=== PATIENT | female | born 1970 | race Caucasian/White ===

== ENCOUNTER 2018-07-07 16:04 | Emergency (ER) | payer OTHER ==
[~2018-07-07] VITALS: Ht 167.6 cm; Wt 67.6 kg
[~2018-07-07 16:04] MED LIST: ASPI325EC PO
[2018-07-07] MEDS ORDERED: Cyclobenzaprine5 MG PO (16:28)
[2018-07-07] MEDS ORDERED: KETO10 PO (16:28)
== END 2018-07-07 16:31 | disposition home or self-care (01) ==
LOC: ER 16:04
DX: S16.1XXA Strain of muscle, fascia and tendon at neck level, initial encounter (principal); F41.9 Anxiety disorder, unspecified; F32.9 Major depressive disorder, single episode, unspecified; M41.9 Scoliosis, unspecified; Z87.891 Personal history of nicotine dependence; V89.2XXA Person injured in unspecified motor-vehicle accident, traffic, initial encounter
CPT/HCPCS: 99282

== ENCOUNTER 2024-12-11 01:08 | Day surgery (SDC) | payer BC ==
[~2024-12-11 01:08] MED LIST changes: +Cyclobenzaprine5 MG PO; +KETO10 PO; +Sod Ferric Gluc Complx/Sucrose 125 MG in NS 100 ML IV SCH
[2024-12-11 13:03] VITALS: BP 106/63
[2024-12-11] MEDS ORDERED: PRENATAL TABLE1 EAC2 PO (13:21)
[2024-12-11] MEDS ORDERED: DOXE10 PO (13:22)
[2024-12-11] MEDS ORDERED: ESCI20 (13:22)
[2024-12-11] MEDS ORDERED: ESTRADIOL (ONC1 EA11 TOP (13:24)
== END 2024-12-11 14:12 | disposition home or self-care (01) ==
LOC: ATC 01:08
DX: D50.0 Iron deficiency anemia secondary to blood loss (chronic) (principal); N92.4 Excessive bleeding in the premenopausal period; M41.9 Scoliosis, unspecified; K04.7 Periapical abscess without sinus; Z87.891 Personal history of nicotine dependence; Z79.899 Other long term (current) drug therapy
CPT/HCPCS: 96365; J2916

== ENCOUNTER 2025-01-08 02:32 | Day surgery (SDC) | payer BC ==
[~2025-01-08 02:32] MED LIST changes: +DOXE10 PO; +ESCI20; +ESTRADIOL (ONC1 EA11 TOP; +PRENATAL TABLE1 EAC2 PO; -Sod Ferric Gluc Complx/Sucrose 125 MG in NS 100 ML IV SCH
[2025-01-08] MEDS ORDERED: Sod Ferric Gluc Complx/Sucrose 125 MG in NS 100 ML IV SCH (06:00)
[2025-01-08 14:12] VITALS: BP 109/70
--- NOTE | 2025-01-08 14:30 | NUR ---
Unable to obtain IV access today, 2 RNs, 3 total IV attemts. Pt will go home and drink fluids and will return tomorrow for a dose of iron.
== END 2025-01-08 14:30 | disposition home or self-care (01) ==
LOC: ATC 02:32
DX: D50.0 Iron deficiency anemia secondary to blood loss (chronic) (principal); Z87.891 Personal history of nicotine dependence; Z79.899 Other long term (current) drug therapy; Z80.0 Family history of malignant neoplasm of digestive organs